=== PATIENT | female | born 1985 | race Caucasian/White ===

== ENCOUNTER 2021-09-17 09:26 | Day surgery (SDC) | payer OTHER ==
[~2021-09-17 09:26] MED LIST: FOLIC ACID0.4 MG PO; PRENATAL CAPLE1 EACH PO
== END 2021-09-17 09:31 | disposition home or self-care (01) ==
LOC: AMB-ENDOS 09:26
PROVIDERS: ATTEND Surgery
DX: K44.9 Diaphragmatic hernia without obstruction or gangrene (principal); I10 Essential (primary) hypertension; E66.01 Morbid (severe) obesity due to excess calories